=== PATIENT | female | born 1975 | race Caucasian/White ===

== ENCOUNTER 2016-11-22 03:00 | Emergency (ER) | payer MEDICAID ==
[~2016-11-22] VITALS: Ht 175.3 cm; Wt 93.2 kg
[~2016-11-22 03:00] MED LIST: OXYB5TAB PO; ROPI2 PO; TRAZ50TA4 PO; ZYPR2.5T2 PO
[2016-11-22 03:03] VITALS: BP 123/72; PULSE 59; RESP 16; O2SAT 97
[2016-11-22 03:20] LABS: AUTOMATED NEUTROPHIL # 3.9 TH/MM3 (1.8-7.7); BASOPHIL # 0.1 TH/MM3 (0-0.2); EOSINOPHIL # 0.1 TH/MM3 (0-0.4); EOSINOPHIL % 2.1 % (0.0-4.0); HEMATOCRIT 37.9 % (35.0-46.0); HEMO FLAGS DIFF FINAL; LYMPH % 27.3 % (9.0-44.0); LYMPHOCYTE # 1.9 TH/MM3 (1.0-4.8); MEAN CELL VOLUME 94.4 FL (80.0-100.0); MONO % 13.8 % (0.0-8.0); NEUT % 55.8 % (16.0-70.0); PLATELET COUNT 202 TH/MM3 (150-450); RED BLOOD COUNT 4.02 MIL/MM3 (4.00-5.30); RED CELL DISTRIBUTION WIDTH 12.4 % (11.6-17.2); WHITE BLOOD COUNT 7.1 TH/MM3 (4.0-11.0)
[2016-11-22 03:35] LABS: PROTHROMBIN TIME - PATIENT 10.5 SEC (9.8-11.6)
[2016-11-22 03:44] LABS: ANION GAP 7 MEQ/L (5-15); AST (GOT) 14 U/L (15-37); BICARBONATE 25.5 MEQ/L (21.0-32.0); BLOOD UREA NITROGEN 5 MG/DL (7-18); CHLORIDE 103 MEQ/L (98-107); GLOMERULAR FILTRATION RATE 116 ML/MIN (>89); MAGNESIUM 1.8 MG/DL (1.5-2.5); POTASSIUM 3.7 MEQ/L (3.5-5.1); SODIUM (NA) 135 MEQ/L (136-145)
[2016-11-22 03:49] LABS: ALKALINE PHOSPHATASE 62 U/L (45-117); ALT (GPT) 17 U/L (10-53); TOTAL BILIRUBIN ADULT 0.4 MG/DL (0.2-1.0)
[2016-11-22 04:00] LABS: CREATINE KINASE 86 U/L (26-192)
--- NOTE | 2016-11-22 05:13 | RADRPT ---
EXAM DATE/TIME: 11/22/2016 04:37 [facility] COMPARISON: CHEST PA & LAT, August 19, 2015, 19:28. INDICATIONS : Chest pain. MEDICAL HISTORY : None. SURGICAL HISTORY : Partial thyroidectomy. ENCOUNTER: Initial ACUITY: 1 day PAIN SCORE: 5/10 LOCATION: chest FINDINGS: A single portable frontal view of the chest shows a focal opacity within the medial supra-hilar right upper lobe. The remaining lungs are clear. Heart is normal in size. No effusions. A mildly scoliotic thoracic spine. CONCLUSION: Right upper lobe infiltrate. Antoni Hoyos Jr., MD on November 22, 2016 at 5:11 Board Certified Radiologist. This report was verified electronically.
[2016-11-22] MEDS ORDERED: AZITHROMYCIN INJ 500 MG in SODIUM CHLOR 0.9% 250 ML INJ 250 ML IV ONE (05:45)
[2016-11-22] MEDS ORDERED: cefTRIAXone INJ 1,000 MG in SODIUM CHLORIDE 0.9% INJ 100 ML IV ONE (05:45)
[2016-11-22] MEDS ORDERED: SODIUM CHLOR 0.9% 1000 ML INJ 1,000 ML IV ONE (06:00)
[2016-11-22] MEDS ORDERED: PANTOPRAZOLE SODIUM 40 MG VIAL IV PUSH ONE (06:00)
[2016-11-22] MEDS ORDERED: MULTCAP13 (06:15)
[2016-11-22] MEDS ORDERED: CALCTAB33 PO (06:15)
[2016-11-22] MEDS ORDERED: BUPR100T4 PO (06:15)
[2016-11-22] MEDS ORDERED: ROPI1TAB PO (06:15)
[2016-11-22] MEDS ORDERED: OXYB5TAB10 PO (06:15)
[2016-11-22] MEDS ORDERED: OLAN15TA PO (06:15)
[2016-11-22] MEDS ORDERED: ROPI2TAB PO (06:15)
[2016-11-22] MEDS ORDERED: BENZ2TAB PO (06:15)
[2016-11-22] MEDS ORDERED: LEVO-33 PO (06:15)
[2016-11-22] MEDS ORDERED: DIPH25CA PO (06:15)
[2016-11-22] MEDS ORDERED: CLON0.5T PO (06:15)
[2016-11-22] MEDS ORDERED: OXCA600T PO (06:15)
[2016-11-22] MEDS ORDERED: TIOT1AER INH (06:15)
[2016-11-22] MEDS ORDERED: OXCA300T PO (06:15)
[2016-11-22] MEDS ORDERED: ACET500C PO (06:17)
--- NOTE | 2016-11-22 06:54 | PD ---
HPI Chief Complaint: Chest Pain Time Seen by Provider: 03:05 Travel History International Travel<30 days: No Contact w/Intl Traveler<30days: No Traveled to known affect area: No History of Present Illness HPI The patient is a 41 year old female who presents to the [facility] emergency department with a history of sharp pain chest pain that she reports is worse with taking a deep breath that began prior to arrival. The patient was brought in by ambulance services. The patient reports on my arrival to the room that the chest pain has resolved. She reports that over the last 2 days she's had a cough that is productive sounding, however she cannot bring anything up. She reports that she has had chest pain in the past that was related to acid reflux. She reports that she has had some acid reflux symptoms recently. She denies having any vomiting or diarrhea. She denies having any known fevers or chills. The patient denies any prior history of myocardial infarction, congestive heart failure, DVT or PE. The patient denies any neck pain, abdominal pain, vomiting, diarrhea, urinary symptoms, or neurologic symptoms. FOR[facility]LY [facility] Past Medical History Narrative Medical The patient's past medical history is significant for bipolar disorder, schizophrenia, acid reflux, thyroid disorder. Bipolar Disorder: Yes Diabetes: No Diminished Hearing: No Psychiatric: Yes (STATES THAT SHE HAS NOT HAD ANY DIAGNOSIS IN 2 YEARS) Immunizations Current: Yes Schizophrenia: Yes Thyroid Disease: Yes PNEUMOCCOCAL Vaccine (Year): 2007 ?: Not : 2 Para: 2 Miscarriage: 0 : 1 Past Surgical History Narrative Surgical The patient's past surgical history significant for partial thyroidectomy related to a thyroid goiter. Abdominal Surgery: Yes Endocrine Surgery: Yes (RIGHT NODULAR GOITERECTOMY/THYROIDECTOMY) Other Surgery: Yes (thyroidectomy) Social History Alcohol Use: No Tobacco Use: Yes (2-3 cigars) Substance Use: No Allergies-Medications (Allergen,Severity, Reaction): Coded Allergies: No Known Allergies (Verified , 11/22/16) Reported Meds & Prescriptions Reported Meds & Active Scripts Active Reported Acetaminophen 500 Mg Cap 500 Mg PO Q4-6H PRN Ditropan (Oxybutynin Chloride) 5 Mg Tab 5 Mg PO Q12HR Ropinirole 2 Mg Tab 2 Mg PO HS Ropinirole 1 Mg Tab 1 Mg PO DAILY Stiolto Respimat Inh (Tiotropium-Olodaterol Inh) 2.5-2.5 Mcg/Act Aero 2 Puff INH DAILY Bupropion HCl 100 Mg Tab 100 Mg PO DAILY Oxcarbazepine 600 Mg Tab 600 Mg PO HS Oxcarbazepine 300 Mg Tab 300 Mg PO DAILY Multi Complete (Multiple Vitamins W/ Minerals) 1 Cap Cap Olanzapine 15 Mg Tab 15 Mg PO HS Levonorgestrel-Ethinyl Estradiol 0.1-0.02 Mg Tab 1 Tab PO DAILY Diphenhydramine (Diphenhydramine HCl) 25 Mg Cap 25 Mg PO Q12H PRN Clonazepam 0.5 Mg Tab 0.25 Mg PO BID Calcium 600+D Plus Minerals (Calcium Carbonate-Vitamin D W/Minerals) 600-400 Mg- Unit Tab 1 Tab PO BID Benztropine (Benztropine Mesylate) 2 Mg Tab 2 Mg PO BID Trazodone Hcl (Trazodone HCl) 50 Mg Tab 50 Mg PO BID Review of Systems Except as stated in HPI: all other systems reviewed are Neg General / Constitutional: No: Fever Eyes: No: Visual changes HENT: Positive: Rhinorrhea, Congestion, No: Headaches Cardiovascular: Positive: Chest Pain or Discomfort, Dyspnea on exertion Respiratory: Positive: Cough, No: Shortness of Breath Gastrointestinal: Positive: Indigestion, Loss of Appetite, No: Nausea, Vomiting, Diarrhea, Abdominal Pain, Changes in Bowel Habits Genitourinary: No: Dysuria Musculoskeletal: No: Pain Skin: No Rash Neurologic: No: Weakness Psychiatric: No: Depression Endocrine: No: Polydipsia Hematologic/Lymphatic: No: Easy Bruising Physical Exam Narrative General: The patient is a well-developed well-nourished female in no acute distress. Head and Neck exam: Head is normocephalic atraumatic. Eyes: EOMI, pupils are equal round and reactive to light. Nose: Midline septum with erythematous edematous nasal mucosa and a clear nasal discharge. Mouth: Dentition unremarkable. Moist mucus membranes. Posterior oropharynx is not erythematous. No tonsillar hypertrophy. Uvula midline. Airway patent. Neck: No palpable lymphadenopathy. No nuchal rigidity. No thyromegaly. Cardiovascular: Regular rate and rhythm without murmurs, gallops, or rubs. Lungs: Clear to auscultation bilaterally. No wheezes, rhonchi, or rales. The patient has an occasional productive sounding cough on examination. Abdomen: Soft, without tenderness to palpation in all 4 quadrants of the abdomen. No guarding, rebound, or rigidity. Normal bowel sounds are audible. No tenderness on palpation of McBurney's point. Extremities: No clubbing, cyanosis, or edema. 2+ pulses in all 4 extremities. No calf tenderness on palpation. Back: No spinous process tenderness to palpation. No costovertebral angle tenderness to palpation. Neurologic Exam: Grossly nonfocal. Skin Exam: No rash noted. Intact skin that is warm and dry. Data Data Last Documented VS Vital Signs Date Time Temp Pulse Resp B/P Pulse Ox O2 Delivery O2 Flow Rate FiO2 11/22/16 03:03 59 16 123/72 97 Orders Electrocardiogram (11/22/16 03:05) Complete Blood Count With Diff (11/22/16 03:05) Comprehensive Metabolic Panel (11/22/16 03:05) Creatine Kinase (Cpk) (11/22/16 03:05) Ckmb (Isoenzyme) Profile (11/22/16 03:05) Troponin I (11/22/16 03:05) B-Type Natriuretic Peptide (11/22/16 03:05) Prothrombin Time / Inr (Pt) (11/22/16 03:05) Act Partial Throm Time (Ptt) (11/22/16 03:05) Lipase (11/22/16 03:05) Urinalysis - C+S If Indicated (11/22/16 03:05) D-Dimer (11/22/16 03:05) Magnesium (Mg) (11/22/16 03:05) Chest, Single Ap (11/22/16 03:05) Iv Access Insert/Monitor (11/22/16 03:05) Ecg Monitoring (11/22/16 03:05) Oximetry (11/22/16 03:05) Drug Screen, Random Urine (11/22/16 03:05) Ed Urine Pregnancytest Poc (11/22/16 03:05) Ceftriaxone Inj (Rocephin Inj) (11/22/16 05:45) Azithromycin Inj (Zithromax Inj) (11/22/16 05:45) Troponin I (11/22/16 06:15) Sodium Chlor 0.9% 1000 Ml Inj (Ns 1000 M (11/22/16 06:00) Pantoprazole Inj (Protonix Inj) (11/22/16 06:00) Labs Laboratory Tests Test 11/22/16 11/22/16 03:15 06:03 White Blood Count 7.1 TH/MM3 Red Blood Count 4.02 MIL/MM3 Hemoglobin 13.3 GM/DL Hematocrit 37.9 % Mean Corpuscular Volume 94.4 FL Mean Corpuscular Hemoglobin 33.0 PG Mean Corpuscular Hemoglobin 35.0 % Concent Red Cell Distribution Width 12.4 % Platelet Count 202 TH/MM3 Mean Platelet Volume 7.7 FL Neutrophils (%) (Auto) 55.8 % Lymphocytes (%) (Auto) 27.3 % Monocytes (%) (Auto) 13.8 % Eosinophils (%) (Auto) 2.1 % Basophils (%) (Auto) 1.0 % Neutrophils # (Auto) 3.9 TH/MM3 Lymphocytes # (Auto) 1.9 TH/MM3 Monocytes # (Auto) 1.0 TH/MM3 Eosinophils # (Auto) 0.1 TH/MM3 Basophils # (Auto) 0.1 TH/MM3 CBC Comment DIFF FINAL Differential Comment Prothrombin Time 10.5 SEC Prothromb Time International 1.0 RATIO Ratio Activated Partial 30.0 SEC Thromboplast Time D-Dimer Quantitative (PE/DVT) 0.25 MG/L FEU Sodium Level 135 MEQ/L Potassium Level 3.7 MEQ/L Chloride Level 103 MEQ/L Carbon Dioxide Level 25.5 MEQ/L Anion Gap 7 MEQ/L Blood Urea Nitrogen 5 MG/DL Creatinine 0.57 MG/DL Estimat Glomerular Filtration 116 ML/MIN Rate Random Glucose 86 MG/DL Calcium Level 8.1 MG/DL Magnesium Level 1.8 MG/DL Total Bilirubin 0.4 MG/DL Aspartate Amino Transf 14 U/L (AST/SGOT) Alanine Aminotransferase 17 U/L (ALT/SGPT) Alkaline Phosphatase 62 U/L Total Creatine Kinase 86 U/L Troponin I LESS THAN 0.02 LESS THAN 0.02 NG/ML NG/ML B-Type Natriuretic Peptide 21 PG/ML Total Protein 6.7 GM/DL Albumin 3.1 GM/DL Lipase 59 U/L MDM Medical Decision Making Medical Screen Exam Complete: Yes Emergency Medical Condition: Yes Medical Record Reviewed: Yes Differential Diagnosis Pneumonia, versus bronchitis, versus COPD, versus new-onset congestive heart failure, versus acute coronary syndrome, versus PE, versus acid reflux Narrative Course During the course of the patients emergency department visit, the patients history, examination, and differential diagnosis were reviewed with the patient. The patient had IV access obtained and blood work sent for analysis. The patient is on a supervising producer with oximetry and blood pressure monitoring. An EKG was done on arrival. The patient's EKG shows a sinus rhythm heart rate of 61, no acute ST segment elevation or depression. The baseline is tremulous from artifact. The patient was provided Rocephin 1 g IV, Zithromax 500 IV, normal saline 1 L IV fluid bolus, Protonix 40 mg IV. The patient denies having any chest pain on my evaluation currently. The patients laboratory studies were reviewed and remarkable for a CBC that is remarkable for a monocytosis at 13.8, white count 7.1, CMP is remarkable for sodium of 135, BUN 5, calcium 8.1, AST 14, initial set of cardiac enzymes are negative, repeat troponin 3 hours later was less than 0.02, lipase 59, BNP 21, d -dimer 0.25 decreasing likelihood of pulmonary embolism in this patient with no other significant risk factors. PT PTT unremarkable, urine drug screen is negative. Radiology studies were reviewed and remarkable for a chest x-ray that shows a right upper lobe infiltrate. On reexamination, the patient reported feeling improved. The patient will be discharged home with a prescription for Ceftin. The patient is resting comfortably and feels better, is alert and in no distress. The patients results and examination findings were discussed with the patient. The repeat examination is unremarkable and benign. The history, exam, diagnostic testing, and current condition do not suggest any significant pathology to warrant further testing, continued ED treatment, admission, or surgical evaluation at this point. The vital signs have been stable. The patient does not have uncontrollable pain, intractable vomiting, or other significant symptoms. The patient's condition is stable and appropriate for discharge. The patient will pursue further outpatient evaluation with a primary care physician or other designated or consulting physician as indicated in the discharge instructions. The patient expressed understanding and was agreeable with this plan. Diagnosis Primary Impression: Pneumonia Qualified Code: J18.1 - Pneumonia of right upper lobe due to infectious organism Referrals: Primary Care Physician 2 days Patient Instructions: Community Acquired Pneumonia (ED), General Instructions Departure Forms: Tests/Procedures Additional Instructions: The patient is instructed regarding the importance of quitting smoking. Med/Other Pt SpecificInfo: Prescription(s) given Scripts Albuterol Powder Inh (Proair Respiclick Inh)90 Mcg/Act Aerp2 Puff INH Q4-6H PRN (SHORTNESS OF BREATH) #1 INHALER Ref 0 Prov:Soniya Ochoa MD 11/22/16 Cefuroxime (Ceftin)500 Mg Eye222 Mg PO BID #19 TAB Ref 0 Prov:Soniya Ochoa MD 11/22/16 Disposition: 01 DISCHARGE HOME Condition: Stable Soniya Ochoa MD Nov 22, 2016 06:54
[2016-11-22 07:09] LABS: AMPHETAMINE, URINE NEG (NEG); BARBITURATES, URINE NEG (NEG); COCAINE, URINE NEG (NEG)
[2016-11-22] MEDS ORDERED: CEFT500T3 PO (07:14)
[2016-11-22] MEDS ORDERED: ALBU1AER5 INH (07:14)
[2016-11-22 07:45] LABS: BACTERIA, URINE MANY /hpf; BLOOD, URINE SMALL (NEG); GLUCOSE,URINE NEG (NEG); KETONE, URINE NEG (NEG); MUCUS URINE FEW /lpf (OCC); NITRITE,URINE NEG (NEG); SQUAMOUS EPITHELIAL CELL URINE 2 /hpf (0-5); URINE COLOR YELLOW (YELLW/STRAW)
[2016-11-22 07:47] LABS: COMMENT (UR) CULTURE INDICATED; CULTURE IF INDICATED CULTURE INDICATED
--- NOTE | 2016-11-22 10:33 | EKG ---
Date Performed: 11/22/2016 Time Performed: 03:08:04 PTAGE: 41 years EKG: Sinus rhythm MODERATE INTRAVENTRICULAR CONDUCTION DELAY BORDERLINE ECG PREVIOUS TRACING : 08/26/2015 22.48 DOCTOR: Mike Gamino Interpretating Date/Time 11/22/2016 10:32:09
== END 2016-11-22 07:48 | disposition home or self-care (01) ==
LOC: NEPC 03:00
DX: J18.1 Lobar pneumonia, unspecified organism (principal); B95.2 Enterococcus as the cause of diseases classified elsewhere
CPT/HCPCS: 71010; 80053; 80307; 81001; 82550; 83690; 83735; 83880; 84484; 84703; 85025; 85379; 85610; 85730; 87077; 87086; 87186; 93005; 96365; 96375; 99285; C9113; J0456; J0696; J7030; J7050

== ENCOUNTER 2016-12-18 08:59 | Emergency (ER) | payer MEDICAID ==
[~2016-12-18] VITALS: Ht 167.6 cm; Wt 91.5 kg
[~2016-12-18 08:59] MED LIST changes: +ACET500C PO; +ALBU1AER5 INH; +BENZ2TAB PO; +BUPR100T4 PO; +CALCTAB33 PO; +CEFT500T3 PO; +CLON0.5T PO; +DIPH25CA PO; +LEVO-33 PO; +MULTCAP13; +OLAN15TA PO; +OXCA300T PO; +OXCA600T PO; -OXYB5TAB PO; +OXYB5TAB10 PO; +ROPI1TAB PO; -ROPI2 PO; +ROPI2TAB PO; +TIOT1AER INH; -ZYPR2.5T2 PO
[2016-12-18 09:01] VITALS: BP 122/70; PULSE 86; RESP 16; TEMP 98.5; O2SAT 98
--- NOTE | 2016-12-18 09:14 | PD ---
HPI . Repeat chest x-ray and UA Chief Complaint: Respiratory Symptoms Time Seen by Provider: 09:14 Travel History International Travel<30 days: No Contact w/Intl Traveler<30days: No Traveled to known affect area: No History of Present Illness HPI 41-year-old female who was previously seen in early November due to a productive cough here for repeat chest x-ray and urinalysis. Patient was seen in early November and diagnosed with a possible pneumonia and urinary tract infection. She was treated with antibiotics and told to follow-up with her primary care provider. Patient is here requesting a repeat chest x-ray and urinalysis to make sure her infections have cleared. She tells me that she is still coughing , but it is nonproductive. She says it is very sporadic and not frequently. She denies any urinary symptoms. She denies any fever or chills. PFSH Past Medical History Bipolar Disorder: Yes Diabetes: No Diminished Hearing: No Psychiatric: Yes (STATES THAT SHE HAS NOT HAD ANY DIAGNOSIS IN 2 YEARS) Immunizations Current: Yes Schizophrenia: Yes Thyroid Disease: Yes PNEUMOCCOCAL Vaccine (Year): 2007 ?: Not LMP: 12/12/2016 : 2 Para: 2 Miscarriage: 0 : 1 Past Surgical History Abdominal Surgery: Yes Endocrine Surgery: Yes (RIGHT NODULAR GOITERECTOMY/THYROIDECTOMY) Other Surgery: Yes (thyroidectomy) Social History Alcohol Use: No Tobacco Use: Yes (2-3 cigars) Substance Use: No Allergies-Medications (Allergen,Severity, Reaction): Coded Allergies: No Known Allergies (Verified , 11/22/16) Reported Meds & Prescriptions Reported Meds & Active Scripts Active Proair Respiclick Inh (Albuterol Sulfate) 90 Mcg/Act Aerp 2 Puff INH Q4-6H PRN Reported Ditropan (Oxybutynin Chloride) 5 Mg Tab 5 Mg PO Q12HR Ropinirole 2 Mg Tab 2 Mg PO HS Ropinirole 1 Mg Tab 1 Mg PO DAILY Stiolto Respimat Inh (Tiotropium-Olodaterol Inh) 2.5-2.5 Mcg/Act Aero 2 Puff INH DAILY Bupropion HCl 100 Mg Tab 100 Mg PO DAILY Oxcarbazepine 600 Mg Tab 600 Mg PO HS Oxcarbazepine 300 Mg Tab 300 Mg PO DAILY Multi Complete (Multiple Vitamins W/ Minerals) 1 Cap Cap Olanzapine 15 Mg Tab 15 Mg PO HS Levonorgestrel-Ethinyl Estradiol 0.1-0.02 Mg Tab 1 Tab PO DAILY Diphenhydramine (Diphenhydramine HCl) 25 Mg Cap 25 Mg PO Q12H PRN Clonazepam 0.5 Mg Tab 0.25 Mg PO BID Calcium 600+D Plus Minerals (Calcium Carbonate-Vitamin D W/Minerals) 600-400 Mg- Unit Tab 1 Tab PO BID Benztropine (Benztropine Mesylate) 2 Mg Tab 2 Mg PO BID Trazodone Hcl (Trazodone HCl) 50 Mg Tab 50 Mg PO BID Review of Systems General / Constitutional: No: Fever Eyes: No: Visual changes HENT: No: Headaches Cardiovascular: No: Chest Pain or Discomfort Respiratory: Positive: Cough, No: Shortness of Breath Gastrointestinal: No: Abdominal Pain Genitourinary: No: Dysuria Musculoskeletal: No: Pain Skin: No Rash Neurologic: No: Weakness Psychiatric: No: Depression Endocrine: No: Polydipsia Hematologic/Lymphatic: No: Easy Bruising Physical Exam Narrative GENERAL: AAO x 3, no acute distress, Well-nourished, well-developed patient. SKIN: Warm and dry. No visible rashes or bruising. HEAD: Normocephalic and atraumatic. EYES: No scleral icterus. No injection or drainage. ENT: No nasal drainage noted. Airway patent. NECK: Supple, trachea midline. No JVD. CARDIOVASCULAR: Regular rate and rhythm without murmurs, gallops, or rubs. RESPIRATORY: Breath sounds equal bilaterally. No accessory muscle use. No rhonchi or rales. No wheezing. GASTROINTESTINAL: Normoactive bowel sounds. Soft, nontender, nondistended. EXTREMITIES: No cyanosis or edema. BACK: Nontender without obvious deformity. No CVA tenderness. PSYCH: AAO x 3, normal affect. Data Data Last Documented VS Vital Signs Date Time Temp Pulse Resp B/P Pulse Ox O2 Delivery O2 Flow Rate FiO2 12/18/16 09:01 98.5 86 16 122/70 98 Orders Urinalysis - C+S If Indicated (12/18/16 09:17) Chest, Single Ap (12/18/16 09:17) Labs Laboratory Tests Test 12/18/16 09:20 Urine Color YELLOW Urine Turbidity CLEAR Urine pH 7.0 Urine Specific [place] 1.007 Urine Protein NEG mg/dL Urine Glucose (UA) NEG mg/dL Urine Ketones NEG mg/dL Urine Occult Blood SMALL Urine Nitrite NEG Urine Bilirubin NEG Urine Urobilinogen LESS THAN 2.0 MG/DL Urine Leukocyte Esterase NEG Urine RBC 6 /hpf Urine WBC 1 /hpf Urine Squamous Epithelial 1 /hpf Cells Urine Amorphous Sediment RARE Urine Bacteria OCC /hpf Microscopic Urinalysis Comment CULT NOT INDICATED MDM Medical Decision Making Medical Screen Exam Complete: Yes Emergency Medical Condition: Yes Medical Record Reviewed: Yes Differential Diagnosis Cough, pneumonia, UTI Narrative Course 41-year-old female who was previously seen in early November due to a productive cough here for repeat chest x-ray and urinalysis. Patient was seen in early November and diagnosed with a possible pneumonia and urinary tract infection. She was treated with antibiotics and told to follow-up with her primary care provider. Patient is here requesting a repeat chest x-ray and urinalysis to make sure her infections have cleared. She tells me that she is still coughing , but it is nonproductive. She says it is very sporadic and not frequently. She denies any urinary symptoms. She denies any fever or chills. Patient seen and examined. Examination is unremarkable. I will go ahead and order a UA and chest x-ray. All results are WNL. NO further workup or treatment indicated. Discussed with patient. Advised f/u with PCP. Diagnosis Primary Impression: Cough Patient Instructions: General Instructions Additional Instructions: Please follow-up with your primary care provider. Med/Other Pt SpecificInfo: No Change to Meds Condition: Stable Liliana Pedro Dec 18, 2016 09:14
[2016-12-18 09:45] LABS: BACTERIA, URINE OCC /hpf; BLOOD, URINE SMALL (NEG); COMMENT (UR) CULT NOT INDICATED; CULTURE IF INDICATED CULT NOT INDICATED; GLUCOSE,URINE NEG (NEG); KETONE, URINE NEG (NEG); NITRITE,URINE NEG (NEG); SQUAMOUS EPITHELIAL CELL URINE 1 /hpf (0-5); URINE COLOR YELLOW (YELLW/STRAW)
--- NOTE | 2016-12-18 09:53 | RADRPT ---
EXAM DATE/TIME: 12/18/2016 09:35 [facility] COMPARISON: No previous studies available for comparison. INDICATIONS : Cough and shortness of breath. Patient states they were here on 11/22/16 and was told to come back for follow up chest xray. MEDICAL HISTORY : None. SURGICAL HISTORY : Partial thyroidectomy. ENCOUNTER: Subsequent ACUITY: 1 month PAIN SCORE: 0/10 LOCATION: chest FINDINGS: A single view of the chest demonstrates the lungs to be symmetrically aerated without evidence of mas s, infiltrate or effusion. The cardiomediastinal contours are unremarkable. Osseous structures are intact. CONCLUSION: Normal examination. Franko Tripp MD on December 18, 2016 at 9:51 Board Certified Radiologist. This report was verified electronically.
== END 2016-12-18 10:21 | disposition home or self-care (01) ==
LOC: NEPK 08:59
DX: R05 Cough (principal); E07.9 Disorder of thyroid, unspecified; Z72.0 Tobacco use; Z87.440 Personal history of urinary (tract) infections; Z87.01 Personal history of pneumonia (recurrent); Z86.59 Personal history of other mental and behavioral disorders
CPT/HCPCS: 71010; 81001; 99283